=== PATIENT | female | born 2000 | race African-American/Black ===

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

== ENCOUNTER 2019-07-25 05:58 | Emergency (ER) | payer OTHER, MEDICAID ==
[~2019-07-25] VITALS: Ht 175.3 cm; Wt 88.9 kg
[~2019-07-25 05:58] MED LIST: LITH300T3 PO; OLAN20TA3 PO; SERT100T PO
--- NOTE | 2019-07-25 06:22 | NUR ---
AT THE BED SIDE
--- NOTE | 2019-07-25 06:24 | NUR ---
URINE COLLECTED AND SENT TO THE LAB
[2019-07-25 06:44] LABS: APPEARANCE,URINE CLEAR (CLEAR); BILIRUBIN,URINE NEGATIVE (NEGATIVE); BLOOD, URINE LARGE Ery/uL (NEGATIVE); COLOR,URINE YELLOW (YELLOW); KETONES,URINE NEGATIVE (NEGATIVE); LEUKOCYTE ESTERASE ,URINE NEGATIVE (NEGATIVE); NITRITE, URINE NEGATIVE (NEGATIVE); PH,URINE 5.5 (5.0-8.0); PROTEIN,URINE NEGATIVE (NEGATIVE); UGLUCOSE NEGATIVE (NEGATIVE); UROBILINOGEN,URINE 0.2 EU/dL (0.2)
[2019-07-25 06:52] LABS: BACTERIA,URINE Few /HPF (None Seen); WBC,URINE 0-2 /HPF (0-3)
--- NOTE | 2019-07-25 09:05 | NUR ---
Patient discharged to home in stable condition. Written and verbal after care instructions given. Patient verbalizes understanding of instruction.
[2019-07-25 09:06] VITALS: BP 128/82
== END 2019-07-25 09:06 | disposition home or self-care (01) ==
LOC: ER 06:01
DX: N93.8 Other specified abnormal uterine and vaginal bleeding (principal); F31.9 Bipolar disorder, unspecified; F17.200 Nicotine dependence, unspecified, uncomplicated; Z79.899 Other long term (current) drug therapy
CPT/HCPCS: 81001; 84703; 87491; 87591; 99283; A6403; 81000-TC